=== PATIENT | female | born 2000 | race Caucasian/White ===

== ENCOUNTER 2021-09-08 19:00 | Inpatient (IN) | payer MEDICAID, OTHER ==
[2021-09-08] VITALS (7 sets, daily range): BP systolic 110–122; BP diastolic 62–84
[~2021-09-08] VITALS: Ht 165.1 cm; Wt 96.8 kg
[2021-09-08] MEDS ORDERED: MINERAL OIL CONCENTRATE 99.9% 15 ML UDC TOP PRN (20:15)
[2021-09-08] MEDS ORDERED: LIDOCAINE/EPI 2% 1:200,00 (XYLOCAINE) 20 ML VIAL INJ PRN (20:15)
[2021-09-08 20:20] LABS: BASOPHILS % (AUTO) 0 % (0-10); EOSINOPHILS # (AUTO) 0.1 10^3/uL (0.0-0.3); EOSINOPHILS % (AUTO) 1 % (0-10); HEMATOCRIT 28 % (35-52); HEMOGLOBIN 9.4 g/dL (11.5-16.0); LYMPHOCYTES # (AUTO) 2.1 10^3/uL (1.0-4.0); LYMPHOCYTES % (AUTO) 21 % (12-44); MEAN CORPUSCULAR HEMOGLOBIN 30 pg (25-34); MEAN CORPUSCULAR HGB CONC 33 g/dL (32-36); MEAN CORPUSCULAR VOLUME 90 fL (80-99); MEAN PLATELET VOLUME 10.4 fL (9.0-12.2); MONOCYTES # (AUTO) 0.4 10^3/uL (0.0-1.0); MONOCYTES % (AUTO) 4 % (0-12); NEUTROPHILS # (AUTO) 7.5 10^3/uL (1.8-7.8); NEUTROPHILS % (AUTO) 74 % (42-75); PLATELET COUNT 310 10^3/uL (130-400); WHITE BLOOD COUNT 10.1 10^3/uL (4.3-11.0)
[2021-09-08 20:25] LABS: BILIRUBIN,URINE NEGATIVE (NEGATIVE); CLARITY,URINE CLEAR; COLOR,URINE YELLOW; GLUCOSE, URINE (UA) NEGATIVE (NEGATIVE); KETONES,URINE NEGATIVE (NEGATIVE); LEUKOCYTE ESTERASE ,URINE 2+ (NEGATIVE); NITRITE,URINE NEGATIVE (NEGATIVE); PH,URINE 6.5 (5-9); PROTEIN,URINE NEGATIVE (NEGATIVE)
[2021-09-08] MEDS ORDERED: LACTATED RINGERS 1,000 ML IV SCH (20:30)
[2021-09-08] MEDS ORDERED: TERBUTALINE INJ 1 MG/ML (BRETHINE) AMP SC PRN (20:30)
[2021-09-08 20:40] LABS: BACTERIA,URINE FEW /HPF
[2021-09-08] MEDS: D5 LR IV SOLUTION 1,000 ML IV SCH (20:45)
[2021-09-08] MEDS ORDERED: LACTATED RINGERS 1,000 ML IV ONE (21:00)
[2021-09-08] MEDS: CATHETER FLUSH 10 ML SYR IV SCH (21:12)
[2021-09-09] VITALS (43 sets, daily range): BP systolic 81–142; BP diastolic 48–108
[2021-09-09] MEDS ORDERED: fentaNYL 2 mcg/ml BUPIVA 0.125 100 ML ONE (02:44)
[2021-09-09] MEDS ORDERED: LACTATED RINGERS 1,000 ML IV ONE (03:00)
[2021-09-09] MEDS ORDERED: BUPIVACAINE 0.25% 30 ML (SENSORCAINE) VIAL ONE (03:15)
[2021-09-09] MEDS ORDERED: fentaNYL INJ 100 MCG/2 ML AMP ONE (03:15)
[2021-09-09] MEDS ORDERED: diphenhydrAMINE 50 MG/ML INJ (BENADRYL) IV PRN (03:45)
[2021-09-09] MEDS ORDERED: ONDANSETRON 4 MG/2 ML (SDV) Z0FRAN IV PRN (03:45)
[2021-09-09] MEDS ORDERED: LACTATED RINGERS 1,000 ML IV SCH (03:45)
[2021-09-09] MEDS ORDERED: METOCLOPRAMIDE INJ 10 MG/2 ML (REGLAN) IV PRN (03:45)
[2021-09-09] MEDS ORDERED: NALOXONE 0.4 MG/ML 1 ML (NARCAN) VIAL IV PRN ×2 (03:45)
[2021-09-09] MEDS ORDERED: EPIDURAL (fentaNYL 2 MCG/ML BUPIVA 0.125%)100 ML BAG EPI PRN (03:45)
[2021-09-09] MEDS: D5 LR IV SOLUTION 1,000 ML IV SCH (04:43)
[2021-09-09] MEDS: CATHETER FLUSH 10 ML SYR IV SCH (06:00)
[2021-09-09] MEDS ORDERED: OXYTOCIN PRE-MIX DRIP 500 ML IV ONE ×2 (08:07→09:03)
[2021-09-09] MEDS: OXYTOCIN PRE-MIX DRIP 500 ML IV SCH ×2 (08:42→09:19)
[2021-09-09] MEDS ORDERED: IBUPROFEN 600 MG (MOTRIN) TAB PO ONE (09:03)
--- NOTE | 2021-09-09 09:11 | History & Physical-OB ---
OB - Chief Complaint & HPI Date/Time Date of Admission: Date of Admission: Sep 08, 2021 at 19:01 Date seen by a Provider: Sep 09, 2021 Time Seen by a Provider: 07:00 Chief Complaint/History OB-Reason for Admission/Chief: Induction of Labor Hx : 2 Hx Para: 1 Expected Date of Delivery: Sep 06, 2021 Gestational Age in Weeks: 40 Gestational Age in Days: 2 Indication for induction: post dates History of Labs A+, Ab neg, Rub Imm HIV/RPR/HepB/C NR normal 1 hr GTT GBS neg Allergies and Home Medications Allergies Coded Allergies: No Known Drug Allergies (Unverified , 09/08/21) Patient Home Medication List Home Medication List Reviewed: Yes OB - History Hx of Present Care: Yes Ultrasounds: Normal mid trimester US Obstetrical Complications: None Medical Complications: None Information Induced Hypertension: No Maternal Gestational Diabetes: No Hemorrhage: No Obstetrical History Hx : 2 Hx # Term Pregnancies: 1 Number of Living Children: 1 Patient Past Medical History None Social History/Family History Alcohol Use: Denies Use Recreational Drug Use: No Smoking Cessation: Never smoker Immunizations Tetanus Booster (TDap): Less than 5yrs Date of Influenza Vaccine: Aug 03, 2021 Rubella: immune RPR/VDRL: Negative GBS Status: Negative HBsAG: Negative OB - Admission Exam Physical Exam Vitals: Vital Signs 09/09/21 09/09/21 06:30 07:00 Temp 36.8 Pulse 79 Resp 18 B/P (MAP) 112/62 (79) Pulse Ox 98 O2 Delivery Room Air HEENT: NCAT Heart: Rhythm Normal Lungs: Clear Abdomen: Gravid Cervical Dilatation: 9cm Effacement: 100% Station: 0 Membranes: Ruptured Amniotic Fluid: Clear Heart Rate: 140's Accelerations: Accelerations Present Decelerations: Early Decelerations Short Term Variability: Present Residential Variability: Average (6-25) Contractions on Admission: < 5 Minutes Apart Intensity: Moderate Peterson Scoring Tool (Modified) Dilation (cm): 1-2cm (1) Effacement (%): 51-79% (2) Descent/Station: -1,0 (2) Cervix Consistency: Soft (2) Cervix Position: Middle/Mid-Position (1) Add 1 point for: Each previous vaginal delivery (1) Peterson Score: 9 Labs Laboratory Tests Test 09/08/21 19:35 Range/Units White Blood Count 10.1 4.3-11.0 10^3/uL Red Blood Count 3.15 L 3.80-5.11 10^6/uL Hemoglobin 9.4 L 11.5-16.0 g/dL Hematocrit 28 L 35-52 % Mean Corpuscular Volume 90 80-99 fL Mean Corpuscular Hemoglobin 30 25-34 pg Mean Corpuscular Hemoglobin Concent 33 32-36 g/dL Red Cell Distribution Width 13.8 10.0-14.5 % Platelet Count 310 130-400 10^3/uL Mean Platelet Volume 10.4 9.0-12.2 fL Immature Granulocyte % (Auto) 0 % Neutrophils (%) (Auto) 74 42-75 % Lymphocytes (%) (Auto) 21 12-44 % Monocytes (%) (Auto) 4 0-12 % Eosinophils (%) (Auto) 1 0-10 % Basophils (%) (Auto) 0 0-10 % Neutrophils # (Auto) 7.5 1.8-7.8 10^3/uL Lymphocytes # (Auto) 2.1 1.0-4.0 10^3/uL Monocytes # (Auto) 0.4 0.0-1.0 10^3/uL Eosinophils # (Auto) 0.1 0.0-0.3 10^3/uL Basophils # (Auto) 0.0 0.0-0.1 10^3/uL Immature Granulocyte # (Auto) 0.0 0.0-0.1 10^3/uL Urine Color YELLOW Urine Clarity CLEAR Urine pH 6.5 5-9 Urine Specific Don[place] 1.010 L 1.016-1.022 Urine Protein NEGATIVE NEGATIVE Urine Glucose (UA) NEGATIVE NEGATIVE Urine Ketones NEGATIVE NEGATIVE Urine Nitrite NEGATIVE NEGATIVE Urine Bilirubin NEGATIVE NEGATIVE Urine Urobilinogen 0.2 < = 1.0 MG/DL Urine Leukocyte Esterase 2+ H NEGATIVE Urine RBC (Auto) NEGATIVE NEGATIVE Urine RBC NONE /HPF Urine WBC 5-10 H /HPF Urine Squamous Epithelial Cells 5-10 /HPF Urine Crystals NONE /LPF Urine Bacteria FEW H /HPF Urine Casts NONE /LPF Urine Mucus NEGATIVE /LPF Urine Culture Indicated YES OB - Assessment/Plan/Diagnosis Assessment Assessment: induction of labor Admission Dx Third trimester 40 week gestation Admission Status: Inpatient Order (span 2 midnights) Reason for Inpatient Admission: Labor Plan Other Plan 20 yo @ 40.3 wga here for IOL Plan - Cytotec protocol - GBS neg - Epidural for pain control - Augment with pitocin FAZAL OROZCO MD Sep 09, 2021 09:11
--- NOTE | 2021-09-09 09:14 | OB Labor & Delivery Record ---
Vag Delivery Note Vag Delivery Note Date of Delivery: 09/09/21 Preoperative Diagnosis: Zaida Perdue is a (20 /Para / ,Gestational Age (wks)40.3 here for IOL Postoperative Diagnosis: Same Surgeon: FAZAL OROZCO Dairy Frozen Manager: None Anesthesia: Epidural Delivery Type: @ 0837 Findings: Viable Male infant, apgars 8/9, weight 6#15, 3140 grams Lacerations: None Intact placenta with 3 vessel cord. No nuchal cord, body cord or shoulder dystocia Estimated Blood Loss: 150 ml Complications: None Condition: Stable Description of Procedure: The patient is a 20 year old female who presented for IOL. She was admitted and informed consent was obtained. Her labor course was unremarkable. She progressed to complete dilatation and began to push. She was then set up for delivery. The 's head was delivered atraumatically in the JESSA position. The shoulders and remainder of the 's body were then delivered without difficulty. Upon delivery, the head was held below the level of the perineum and the mouth and nares were bulb suctioned. The cord was doubly clamped and cut and the was attended to on maternal abdomen by the pediatric staff. An intact placenta with 3-vessel cord delivered via Nelson and there was found to be minimal bleeding.~ Vigorous fundal massage was performed and the fundus was found to be firm. IV oxytocin was given. Examination of the vagina and perineum revealed no lacerations that requir repair. Following the repair, sponge, instrument and needle counts were correct. Mom and baby were both in stable condition in the labor suite. Vitals - Labs Vital Signs - I&O Vital Signs Date Time Temp Pulse Resp B/P (MAP) Pulse Ox O2 Delivery O2 Flow Rate FiO2 09/09/21 07:00 79 18 112/62 (79) 98 Room Air 09/09/21 06:45 60 100 Room Air 09/09/21 06:30 36.8 72 18 98 Room Air 09/09/21 06:15 61 18 102/64 (77) 98 Room Air 09/09/21 06:00 55 18 108/66 (80) 98 Room Air 09/09/21 05:45 67 18 137/108 (118) 100 Room Air 09/09/21 05:30 36.6 62 18 83/50 (61) 97 Room Air 09/09/21 05:00 62 18 81/48 (59) 97 Room Air 09/09/21 04:45 65 18 87/52 (64) 97 Room Air 09/09/21 04:30 78 18 86/48 (61) 97 Room Air 09/09/21 04:15 75 18 119/65 (83) 98 Room Air 09/09/21 04:00 71 18 123/64 (83) 98 Room Air 09/09/21 03:51 63 18 122/68 (86) 98 Room Air 09/09/21 03:48 95 18 120/56 (77) 98 Room Air 09/09/21 03:45 72 18 97/55 (69) 97 Room Air 09/09/21 03:42 85 18 120/57 (78) 97 Room Air 09/09/21 03:39 66 18 124/57 (79) 99 Room Air 09/09/21 03:36 74 18 134/74 (94) 100 Room Air 09/09/21 03:33 36.7 80 18 136/72 (93) 100 Room Air 09/09/21 03:30 73 18 126/83 (97) 98 Room Air 09/09/21 03:27 78 18 137/92 (107) 98 Room Air 09/09/21 03:24 80 18 138/93 (108) 98 Room Air 09/09/21 03:21 83 18 142/96 (111) 99 Room Air 09/09/21 03:18 82 18 120/76 (91) 99 Room Air 09/09/21 03:15 80 18 126/87 (100) Room Air 09/09/21 03:07 69 18 121/81 (94) Room Air 09/09/21 02:09 66 18 120/79 (93) Room Air 09/09/21 01:08 36.3 60 18 104/59 (74) Room Air 09/09/21 00:08 74 18 107/68 (81) Room Air 09/08/21 23:01 74 18 111/62 (78) Room Air 09/08/21 22:31 72 18 119/71 (87) Room Air 09/08/21 22:01 73 18 122/77 (92) Room Air 09/08/21 21:30 61 18 116/84 (95) Room Air 09/08/21 21:01 90 18 115/70 (85) Room Air 09/08/21 20:38 79 18 112/66 (81) Room Air 09/08/21 19:20 36.3 86 18 99 Room Air 09/08/21 19:20 36.3 86 18 110/73 (85) 99 Room Air I & O 09/09/21 07:00 Intake Total 4000 ml Balance 4000 ml Labs Laboratory Tests 09/08/21 19:35: White Blood Count 10.1, Red Blood Count 3.15L, Hemoglobin 9.4L, Hematocrit 28L, Mean Corpuscular Volume 90, Mean Corpuscular Hemoglobin 30, Mean Corpuscular Hemoglobin Concent 33, Red Cell Distribution Width 13.8, Platelet Count 310, Mean Platelet Volume 10.4, Immature Granulocyte % (Auto) 0, Neutrophils (%) (Auto) 74, Lymphocytes (%) (Auto) 21, Monocytes (%) (Auto) 4, Eosinophils (%) (Auto) 1, Basophils (%) (Auto) 0, Neutrophils # (Auto) 7.5, Lymphocytes # (Auto) 2.1, Monocytes # (Auto) 0.4, Eosinophils # (Auto) 0.1, Basophils # (Auto) 0.0, Immature Granulocyte # (Auto) 0.0, Urine Color YELLOW, Urine Clarity CLEAR, Urine pH 6.5, Urine Specific [place] 1.010L, Urine Protein NEGATIVE, Urine Glucose (UA) NEGATIVE, Urine Ketones NEGATIVE, Urine Nitrite NEGATIVE, Urine Bilirubin NEGATIVE, Urine Urobilinogen 0.2, Urine Leukocyte Esterase 2+H, Urine RBC (Auto) NEGATIVE, Urine RBC NONE, Urine WBC 5-10H, Urine Squamous Epithelial Cells 5-10, Urine Crystals NONE, Urine Bacteria FEWH, Urine Casts NONE, Urine Mucus NEGATIVE, Urine Culture Indicated YES FAZAL OROZCO MD Sep 09, 2021 09:14
[2021-09-09] MEDS ORDERED: WITCH HAZEL(TUCKS) 40 EA JAR TOP PRN (09:15)
[2021-09-09] MEDS ORDERED: TETANUS,DIPTH,PERTUSS P/F (BOOSTRIX) 0.5 ML VIAL IM ONE (09:15)
[2021-09-09] MEDS ORDERED: BENZOCAINE/MENTHOL (DERMOPLAST) 56 ML CAN TP PRN (09:15)
[2021-09-09] MEDS ORDERED: MEASLES,MUMPS,RUBELLA 1 EA INJ SQ ONE (09:15)
[2021-09-09] MEDS: IBUPROFEN 600 MG (MOTRIN) TAB PO SCH ×3 (09:19→22:11)
[2021-09-09] MEDS ORDERED: CATHETER FLUSH 10 ML SYR IV SCH (14:00)
[2021-09-09] MEDS: ACETAMINOPHEN 500 MG TAB (TYLENOL) PO SCH ×2 (17:59→19:27)
[2021-09-09] MEDS ORDERED: LEVO25TA5 PO (19:23)
[2021-09-09] MEDS ORDERED: PREN-142 PO (19:23)
[2021-09-09] MEDS ORDERED: OMEP-254 PO (19:23)
[2021-09-09] MEDS: DOCUSATE SODIUM 100 MG (COLACE) CAP PO SCH (22:11)
[2021-09-10 01:12] VITALS: BP 110/71
[2021-09-10] MEDS: ACETAMINOPHEN 500 MG TAB (TYLENOL) PO SCH ×2 (01:12→09:37)
[2021-09-10] MEDS ORDERED: CALCIUM CARBONATE 500 MG (TUMS) TAB.CHEW ONE (03:57)
[2021-09-10 03:58] VITALS: BP 116/71
[2021-09-10] MEDS: IBUPROFEN 600 MG (MOTRIN) TAB PO SCH ×2 (03:58→11:51)
[2021-09-10] MEDS ORDERED: CALCIUM CARBONATE 500 MG (TUMS) TAB.CHEW PO PRN (04:00)
[2021-09-10 06:48] LABS: BASOPHILS % (AUTO) 0 % (0-10); EOSINOPHILS # (AUTO) 0.2 10^3/uL (0.0-0.3); EOSINOPHILS % (AUTO) 2 % (0-10); HEMATOCRIT 24 % (35-52); HEMOGLOBIN 7.9 g/dL (11.5-16.0); LYMPHOCYTES # (AUTO) 3.2 10^3/uL (1.0-4.0); LYMPHOCYTES % (AUTO) 30 % (12-44); MEAN CORPUSCULAR HEMOGLOBIN 30 pg (25-34); MEAN CORPUSCULAR HGB CONC 33 g/dL (32-36); MEAN CORPUSCULAR VOLUME 92 fL (80-99); MEAN PLATELET VOLUME 10.5 fL (9.0-12.2); MONOCYTES # (AUTO) 0.6 10^3/uL (0.0-1.0); MONOCYTES % (AUTO) 5 % (0-12); NEUTROPHILS # (AUTO) 6.9 10^3/uL (1.8-7.8); NEUTROPHILS % (AUTO) 63 % (42-75); PLATELET COUNT 259 10^3/uL (130-400); WHITE BLOOD COUNT 10.9 10^3/uL (4.3-11.0)
[2021-09-10 08:00] VITALS: BP 92/58
[2021-09-10] MEDS ORDERED: FERROUS SULF 325 MG (IRON) TAB PO SCH (09:15)
[2021-09-10] MEDS: DOCUSATE SODIUM 100 MG (COLACE) CAP PO SCH (09:37)
[2021-09-10] MEDS ORDERED: IBUP-844 PO (10:14)
[2021-09-10] MEDS ORDERED: FERR325T24 PO (10:14)
--- NOTE | 2021-09-10 10:19 | Short Stay Summary ---
Discharge Summary Hospital Course Problems/Dx: (1) Status post vaginal delivery Assessment & Plan: s/p following elective IOL at 40w3d for post-dates. G2,P@ GBS negative. Routine care. (2) Anemia, Status: Acute Assessment & Plan: Hb 7.9 following delivery. Asymptomatic. Rx for ferrous sulfate 325mg daily in addition to PNV. (3) 40 weeks gestation of Status: Resolved (4) Elective induction of labor planned Status: Resolved Final Diagnosis: see problem list Hospital Course Date of Admission: Sep 08, 2021 at 19:01 Family Physician/Provider: Pierre Date of Discharge: 09/10/21 Labs and Pending Lab Test: Laboratory Tests 09/10/21 06:35: White Blood Count 10.9, Red Blood Count 2.64L, Hemoglobin 7.9L, Hematocrit 24L, Mean Corpuscular Volume 92, Mean Corpuscular Hemoglobin 30, Mean Corpuscular Hemoglobin Concent 33, Red Cell Distribution Width 14.0, Platelet Count 259, Mean Platelet Volume 10.5, Immature Granulocyte % (Auto) 0, Neutrophils (%) (Auto) 63, Lymphocytes (%) (Auto) 30, Monocytes (%) (Auto) 5, Eosinophils (%) (Auto) 2, Basophils (%) (Auto) 0, Neutrophils # (Auto) 6.9, Lymphocytes # (Auto) 3.2, Monocytes # (Auto) 0.6, Eosinophils # (Auto) 0.2, Basophils # (Auto) 0.0, Immature Granulocyte # (Auto) 0.0 Microbiology 09/08/21 Urine Culture - Preliminary, Resulted Slight Growth Present Home Meds Active Reported Omeprazole Magnesium 20 Mg Capsule.dr 20 Mg PO DAILY Levothyroxine Sodium 25 Mcg Tablet 25 Mcg PO DAILY Vitamin Tablet ( Vit No.124/Iron/FA) 1 Each Tablet 1 Each PO DAILY Assessment/Pt Instructions Follow up with Dr. Jay in [facility] in 6 weeks. Discharge Instructions Discharge Diet: No Restrictions Activity as Tolerated: Yes Discharge Physical Examination General Appearance: Alert, Oriented X3, Cooperative Psych/Mental Status: Mood NL Allergies: Coded Allergies: No Known Drug Allergies (Unverified , 09/08/21) Copy Copies To 1: FAZAL JAY MD Discharge Summary Date of Admission Sep 08, 2021 at 19:01 Date of Discharge JOSE RAFAEL ESCALONA DO Sep 10, 2021 10:19
[2021-09-10 12:45] VITALS: BP 92/58
--- NOTE | 2021-09-10 13:48 | Anesthesia-Regional Post-Op ---
Regional Post Op Complications Complications None Follow Up Care/Instructions Patient Instructions None needed. Anesthesia/Patient Condition Chart reviewed, no apparent adverse anesthesia problems. No complications reported per nursing. READING,BETH Archer CRNA Sep 10, 2021 13:48
== END 2021-09-10 13:00 | disposition home or self-care (01) | DRG 807 ==
LOC: LDRP 19:01
PROVIDERS: ADMIT Family Medicine; ATTEND Family Medicine
PROC: 3E0DXGC Introduction of Other Therapeutic Substance into Mouth and Pharynx, External Approach (ICD-10-PCS; 2021-09-08)
PROC: 10E0XZZ Delivery of Products of Conception, External Approach (ICD-10-PCS; principal; 2021-09-09)
DX: O48.0 Post-term pregnancy (principal); Z37.0 Single live birth; Z3A.40 40 weeks gestation of pregnancy; O90.81 Anemia of the puerperium
CPT/HCPCS: 36415; 81000; 85025; 86850; 86900; 86901; 87088

== ENCOUNTER 2022-01-12 01:52 | Emergency (ER) | payer MEDICAID ==
[~2022-01-12] VITALS: Ht 165 cm; Wt 90.7 kg
[~2022-01-12 01:52] MED LIST: FERR325T24 PO; IBUP-844 PO; LEVO25TA5 PO; OMEP-254 PO; PREN-142 PO
[2022-01-12] MEDS ORDERED: LACTATED RINGERS 1,000 ML IV ONE (02:15)
--- NOTE | 2022-01-12 02:15 | ED Cardiac General ---
History of Present Illness General Stated Complaint: ELEVATED HR Source: patient Exam Limitations: no limitations History of Present Illness Date Seen by Provider: Jan 12, 2022 Time Seen by Provider: 01:55 Initial Comments 21-year-old female with past medical history of hypothyroidism coming in due to elevated heart rate. She says she randomly checked her heart rate last week with a pulse ox because she saw one available and it was around 110. She did not think anything of it. She missed a few days of her levothyroxine so she took around 4 of them yesterday. There are 25 mcg apiece. When she checked her heart rate again today she saw that it was elevated from the [place] low 100s to around 120. Denies any chest pain, shortness of breath, abdominal pain, nausea, vomiting, diarrhea, fever, chills, weakness, numbness, or any other concerns. Has never had a blood clot, denies any lower extremity swelling or pain. No recent surgeries, no recent travel. Thought she was feeling anxious so she smokes marijuana today. Does get the Depo shot monthly and LMP is currently happening. Allergies and Home Medications Allergies Coded Allergies: No Known Drug Allergies (Unverified , 09/08/21) Patient Home Medication List Home Medication List Reviewed: Yes Ferrous Sulfate (Ferosul) 325 Mg Tablet, 325 MG PO DAILY@0700 Prescribed by: JOSE RAFAEL ESCALONA on 09/10/21 1014 Ibuprofen (Ibu) 600 Mg Tablet, 600 MG PO Q6HR PRN for CRAMPS Prescribed by: JOSE RAFAEL ESCALONA on 09/10/21 1014 Levothyroxine Sodium (Levothyroxine Sodium) 25 Mcg Tablet, 25 MCG PO DAILY, (Reported) Entered as Reported by: NATE DAO on 09/09/211922 Vit No.124/Iron/FA ( Vitamin Tablet) 1 Each Tablet, 1 EACH PO DAILY, (Reported) Entered as Reported by: NATE DAO on 09/09/211922 Review of Systems Review of Systems Constitutional: No chills, No fever EENTM: No Blurred Vision Respiratory: Denies Cough, Denies Shortness of Air Cardiovascular: Denies Chest Pain Gastrointestinal: No Symptoms Reported Genitourinary: No Symptoms Reported Musculoskeletal: no symptoms reported Skin: no symptoms reported Psychiatric/Neurological: No Symptoms Reported Endocrine: No Symptoms Reported Hematologic/Lymphatic: No Symptoms Reported All Other Systems Reviewed Negative Unless Noted: Yes Past Tuyjrih-Cojpwt-Yzkefy Hx Patient Social History Use of E-Cig and/or Vaping dev: Yes Substance use?: Yes Substance type: Marijuana Immunizations Up To Date Tetanus Booster (TDap): Less than 5yrs First/Initial COVID19 Vaccinat: 08/03/21 Past Medical History Surgeries: Yes Adenoidectomy, Gallbladder Physical Exam Vital Signs Vital Signs - First Documented 01/12/22 01:55 Temp 36.4 Pulse 116 Resp 17 B/P (MAP) 149/101 (117) Pulse Ox 100 O2 Delivery Room Air Capillary Refill : Height, Weight, BMI Height: '" Weight: lbs. oz. kg; 35.51 BMI Method: General Appearance: No Apparent Distress, WD/WN HEENT: PERRL/EOMI, Normal ENT Inspection, Pharynx Normal Neck: Full Range of Motion, Normal Inspection, Non Tender, Supple Respiratory: Chest Non Tender, Lungs Clear, Normal Breath Sounds, No Accessory Muscle Use, No Respiratory Distress Cardiovascular: No Edema, Normal Peripheral Pulses, Tachycardia Gastrointestinal: Normal Bowel Sounds, Non Tender, Soft; No Distended, No Guarding Extremity: Normal Capillary Refill, Normal Inspection, Normal Range of Motion, Non Tender, No Calf Tenderness, No Pedal Edema Neurologic/Psychiatric: Alert, No Motor/Sensory Deficits, Normal Mood/Affect Skin: Normal Color, Warm/Dry Lymphatic: No Adenopathy Progress/Results/Core Measures Results/Orders Lab Results Laboratory Tests Test 01/12/22 02:10 Range/Units White Blood Count 8.8 4.3-11.0 10^3/uL Red Blood Count 3.91 3.80-5.11 10^6/uL Hemoglobin 10.6 L 11.5-16.0 g/dL Hematocrit 33 L 35-52 % Mean Corpuscular Volume 84 80-99 fL Mean Corpuscular Hemoglobin 27 25-34 pg Mean Corpuscular Hemoglobin Concent 32 32-36 g/dL Red Cell Distribution Width 14.7 H 10.0-14.5 % Platelet Count 346 130-400 10^3/uL Mean Platelet Volume 11.2 9.0-12.2 fL Immature Granulocyte % (Auto) 0 % Neutrophils (%) (Auto) 54 42-75 % Lymphocytes (%) (Auto) 38 12-44 % Monocytes (%) (Auto) 6 0-12 % Eosinophils (%) (Auto) 2 0-10 % Basophils (%) (Auto) 1 0-10 % Neutrophils # (Auto) 4.8 1.8-7.8 10^3/uL Lymphocytes # (Auto) 3.4 1.0-4.0 10^3/uL Monocytes # (Auto) 0.5 0.0-1.0 10^3/uL Eosinophils # (Auto) 0.1 0.0-0.3 10^3/uL Basophils # (Auto) 0.0 0.0-0.1 10^3/uL Immature Granulocyte # (Auto) 0.0 0.0-0.1 10^3/uL Prothrombin Time 13.8 12.2-14.7 SEC INR Comment 1.0 0.8-1.4 Activated Partial Thromboplast Time 34 24-35 SEC D-Dimer 0.30 0.00-0.49 UG/ML Sodium Level 139 135-145 MMOL/L Potassium Level 3.5 L 3.6-5.0 MMOL/L Chloride Level 106 98-107 MMOL/L Carbon Dioxide Level 20 L 21-32 MMOL/L Anion Gap 13 5-14 MMOL/L Blood Urea Nitrogen 9 7-18 MG/DL Creatinine 0.79 0.60-1.30 MG/DL Estimat Glomerular Filtration Rate 108 BUN/Creatinine Ratio 11 Glucose Level 101 70-105 MG/DL Calcium Level 9.0 8.5-10.1 MG/DL Corrected Calcium 8.7 8.5-10.1 MG/DL Total Bilirubin 0.7 0.1-1.0 MG/DL Aspartate Amino Transf (AST/SGOT) 24 5-34 U/L Alanine Aminotransferase (ALT/SGPT) 18 0-55 U/L Alkaline Phosphatase 58 40-136 U/L Total Protein 7.6 6.4-8.2 GM/DL Albumin 4.4 3.2-4.5 GM/DL My Orders Orders - BLANCO HINOJOSA MD Ekg Tracing (01/12/22 01:55) Cbc With Automated Diff (01/12/22 02:08) Comprehensive Metabolic Panel (01/12/22 02:08) Fibrin Degradation Products (01/12/22 02:08) Protime With Inr (01/12/22 02:08) Partial Thromboplastin Time (01/12/22 02:08) Thyroid Stimulating Hormone (01/12/22 02:08) Ed Iv/Invasive Line Start (01/12/22 02:08) Lactated Ringers (Lr 1000 Ml Iv Solution (01/12/22 02:15) Ekg Tracing (01/12/22 02:08) Urine Bedside (01/12/22 02:22) Medications Given in ED Current Medications Medications Dose Ordered Sig/Jose Route Start Time Stop Time Status Last Admin Dose Admin Lactated Ringer's 1,000 ml @ 0 mls/hr Q0M ONCE IV 01/12/22 02:15 01/12/22 02:16 DC 01/12/22 02:24 999 MLS/HR Vital Signs/I&O 01/12/22 01:55 Temp 36.4 Pulse 116 Resp 17 B/P (MAP) 149/101 (117) Pulse Ox 100 O2 Delivery Room Air Progress Progress Note : Progress Note 21-year-old female with above history coming in due to elevated heart rate with lack of any other symptoms. She just periodically is checking her heart rate with a pulse ox but is denying any chest pain or shortness of breath. Also denying any signs or symptoms of a DVT. She is not on any estrogen products. EKG sinus with a rate of [address] changes. Watching her on the monitor she does shoot up to the low 100s at times. An IV was placed and she was given a bolus of IV fluids as well as basic labs including a D-dimer ordered. I have a low suspicion for PE given her history, but I cannot fully be ruled out given the tachycardia at times. I do suspect this could be related to the extra dosing of levothyroxine, which upon review has a half-life of around 5 to 7 days. We will get a TSH, however it is a send out so we will not have a result back tonight. Hemoglobin is around 10 which she does have a history of iron deficiency anemia so this is not unreasonable for her. Creatinine is normal, D-dimer is negative, TSH pending. After IV fluids her heart rate came down to the 80s which is reassuring. Is likely she has some degree of dehydration. I believe she is stable for discharge with outpatient follow-up, especially given she is asymptomatic. She was sent home with strict return precautions Initial ECG Impression Date: Jan 12, 2022 Initial ECG Impression Time: 02:01 Initial ECG Rate: 99 Initial ECG Rhythm: Normal Sinus Comment Normal sinus, narrow QRS, possible Q-wave in lead III with T wave inversion, no significant ST changes, no prior EKG to compare to Departure Impression Primary Impression: Sinus tachycardia Disposition: 01 HOME, SELF-CARE Condition: Stable Departure-Patient Inst. Decision time for Depature: 02:49 Referrals: NO,LOCAL PHYSICIAN (PCP/Family) Primary Care Physician Patient Instructions: Sinus Tachycardia (DC) Add. Discharge Instructions: Your heart rate came down nicely after we gave you IV fluids, so it is possible you were a little bit dehydrated. Your blood work was reassuring, and it does not look like you have any signs of a blood clot which is one thing that can cause elevated heart rates. I do recommend taking your levothyroxine as prescribed. As possible taking this not as prescribed is also elevating your heart rate. I would restart your normal dose on Sunday. If you begin having severe chest pain, severe shortness of breath, or any other concerns and please come back to the ER or call your regular doctor. BLANCO HINOJOSA MD Jan 12, 2022 02:15
[2022-01-12 02:23] LABS: BASOPHILS % (AUTO) 1 % (0-10); EOSINOPHILS # (AUTO) 0.1 10^3/uL (0.0-0.3); EOSINOPHILS % (AUTO) 2 % (0-10); HEMATOCRIT 33 % (35-52); HEMOGLOBIN 10.6 g/dL (11.5-16.0); LYMPHOCYTES # (AUTO) 3.4 10^3/uL (1.0-4.0); LYMPHOCYTES % (AUTO) 38 % (12-44); MEAN CORPUSCULAR HEMOGLOBIN 27 pg (25-34); MEAN CORPUSCULAR HGB CONC 32 g/dL (32-36); MEAN CORPUSCULAR VOLUME 84 fL (80-99); MEAN PLATELET VOLUME 11.2 fL (9.0-12.2); MONOCYTES # (AUTO) 0.5 10^3/uL (0.0-1.0); MONOCYTES % (AUTO) 6 % (0-12); NEUTROPHILS # (AUTO) 4.8 10^3/uL (1.8-7.8); NEUTROPHILS % (AUTO) 54 % (42-75); PLATELET COUNT 346 10^3/uL (130-400); WHITE BLOOD COUNT 8.8 10^3/uL (4.3-11.0)
[2022-01-12 02:35] LABS: PROTHROMBIN TIME PATIENT 13.8 SEC (12.2-14.7)
[2022-01-12 02:41] LABS: ALBUMIN 4.4 GM/DL (3.2-4.5); BILIRUBIN,TOTAL 0.7 MG/DL (0.1-1.0); CREATININE SERUM 0.79 MG/DL (0.60-1.30); POTASSIUM 3.5 MMOL/L (3.6-5.0); TOTAL PROTEIN 7.6 GM/DL (6.4-8.2)
[2022-01-12 02:43] LABS: FIBRIN DEGRADATION PRODUCTS 0.3 UG/ML (0.00-0.49)
[2022-01-12 03:05] VITALS: BP 115/70
== END 2022-01-12 03:05 | disposition home or self-care (01) ==
LOC: EDUNIT# 01:52 → ER FS 01:54
DX: R00.0 Tachycardia, unspecified (principal)
CPT/HCPCS: 36415; 80053; 84443; 84703; 85025; 85379; 85610; 85730; 93005